=== PATIENT | male | born 1975 | race Caucasian/White ===

== ENCOUNTER 2020-08-02 16:14 | Observation (INO) | payer MEDICAID, SELFPAY ==
[2020-08-02 16:14] VITALS: BP 153/90; PULSE 87; RESP 18; TEMP 36.7; O2SAT 97; BMI 29.2
--- NOTE | 2020-08-02 16:30 | ED.VIS.GEN ---
History of Present Illness Chief Complaint: Substance Abuse Informant: Patient, Family Narrative: Patient is a 44-year-old male who presents to the emergency department to get help detoxing from fentanyl. He states that he has been using regularly over the past 2 years. He typically uses daily. He is up to half a gram a day now. Last time he used was 24 hours ago. States he snorts it. Denies any other current substance abuse. He did have a history of cocaine and meth use over a year ago. He denies any alcohol abuse. Does smoke cigarettes. He states this time he just feels like crap. He has had some chills. Denies any chest pain or shortness of breath. No abdominal pain but has not been hungry. Denies nausea or vomiting. No headache or vision changes. Past Medical History - Allergies and Home Meds Allergies/Adverse Reactions: Allergies No Known Allergies Allergy (Verified 08/02/20 16:16) Prior records reviewed: Yes Smoking Status: Current every day smoker Drugs: - - Fentanyl Review of Systems All systems negative except as indicated General: Reports: Chills. Denies: Fever Eyes: Denies: Visual changes - bilaterally, Diplopia ENT: Denies: Rhinorrhea, Sore throat Cardiovascular: Denies: Chest pain, Palpitations Respiratory: Denies: Dyspnea, Cough, Dyspnea on exertion Gastrointestinal: Denies: Abdominal pain, Nausea, Vomiting, Diarrhea Genitourinary: Denies: Dysuria, Hematuria, Frequency Musculoskeletal: Denies: Back pain, Extremity Pain Skin: Denies: Rash, Wounds Neurological: Denies: Headache, Weakness, Numbness Physical Exam Vital Signs/Narrative: Vital Signs Temp Pulse Resp BP Pulse Ox 08/02/20 16:14 98.0 F 87 18 153/90 H 97 Inital Vital Signs reviewed: Yes General: Well nourished, Well developed, No Acute Distress Head: Normocephalic, Atraumatic Eyes: Perrl, EOMI ENT: Moist mucous membranes, No rhinorrhea Neck: Supple, Nontender Cardiovascular: Regular rate, Regular rhythm, No murmurs Respiratory: No distress, CTA bilaterally, Chest nontender Abdomen: Soft, Nontender, Nondistended, Normal bowel sounds Back: Nontender, Normal Inspection Extremities: Nontender, No edema Skin: Normal color, No rash Neurological: Alert, Oriented x3, Cranial nerves II-XII grossly intact, Normal Strength, Normal Sensation Psychological: Normal affect, Normal Mood Diagnostic/Tx/Re-eval - Medical Decision Making Patient presents to the emergency department for requesting to detox from fentanyl use. Upon arrival to the ED vital signs within normal limits. He is in no acute distress. Will check basic lab work. Patient requesting something for his withdrawal symptoms. He has been having tremors of his lower extremities and does not feel well. He is given a single dose of 0.5 mg Ativan. The rest of his lab work did not reveal any significant acute abnormality. Will bring him into the hospital for further evaluation and management. He understands and is agreeable with this plan. ED Disposition - Plan for ED Patient: Disposition: Acute Care [facility] Diagnosis: Opioid abuse, Symptom of drug withdrawal
--- NOTE | 2020-08-02 17:00 | CM.ED ---
SOCIAL WORK Informant: Dr. Peters Reason for Consult: Substance Abuse Patient presents for medical withdrawal management from fentanyl. Met with patient and patient's significant other, Tamika in room. Introduced role and reason for referral. Patient gave permission for this worker to speak openly with significant other present. Patient reports last use of fentanyl was yesterday around 11a-12p. Patient with history of anxiety and depression and is treated with Paxil, Wellbutrin and Seroquel. Patient follows with [facility]. Significant other reports nursing has gone over [facility] agreement. Informed patient, this worker will update [facility] on admission and encyclopedia research worker will be in during admission to complete assessment. Patient verbalized understanding. Patient inquiring if medication can be given for restless legs. Dr. Peters updated. Plan: Admit to VIGNESH Baird, DIGITIZER OPERATOR, DRAPERY COUNSELOR
[2020-08-02 17:37] LABS: Absolute Neutrophil Count 6.7 X10^3/uL (2.0-7.7); Basophil# 0.04 X10^3/uL; Basophil% 0.4 % (0-1); Hematocrit 43.4 % (40-54); Hemoglobin 14.2 g/dL (13.0-16.5); Lymphocyte % 23.3 % (19-41); Mean Corp Hgb Conc 32.7 g/dL (32-36); Mean Corpuscular Hgb 28.6 pg (27.0-32.0); Mean Corpuscular Volume 87.3 fL (80-94); Mean Platelet Vol. 9.2 fl (6.2-12.0); Monocyte# 0.52 X10^3/uL; Monocyte% 5.3 % (0-10); NRBC Flagged by Analyzer 0 % (0-5); Neutrophil # 6.68 X10^3/uL (2.7-7.7); Neutrophil % 67.7 % (47-70); Platelet Count 350 K/mm3 (150-450); RBC Distribution Width CV 12.4 % (11.6-14.6); RBC Distribution Width SD 39.5 fl (35.1-43.9); Red Blood Count 4.97 M/mm3 (4.6-6.2); White Blood Count 9.9 K/mm3 (4.4-11.0)
[2020-08-02 17:50] LABS: ALB/GLOB Ratio 0.9 RATIO (0.9-2.4); AST(SGOT) 16 U/L (15-37); Alanine Aminotransfer ALT/SGPT 20 U/L (16-61); Albumin, Serum 3.3 g/dL (3.2-5.0); Alkaline Phosphatase 91 U/L (45-117); Anion Gap 6 (5-15); BUN 10 mg/dL (7-18); BUN/Creat Ratio 15.4 RATIO (10-20); Calcium,Total 8.8 mg/dL (8.5-10.1); Chloride 108 mmol/L (98-107); Creatinine, Serum 0.65 mg/dL (0.70-1.30); EST Glomerular Filtration Rate 143 mL/min (>60); Est Glom Filt Rate - Afr Amer 173 mL/min (>60); Estimated Creatinine Clearance 172.13 ml/min; Globulin 3.6 g/dL (2.2-4.2); Glucose 95 mg/dL (74-106); Potassium 3.7 mmol/L (3.5-5.1); Protein, Total 6.9 g/dL (6.4-8.2); Sodium Level 141 mmol/L (136-145)
[2020-08-02] MEDS: LORazepam 2 MG/ML Syringe 0.5 MG IV (18:03)
[2020-08-02 18:37] LABS: Alcohol, Blood (Medical)-Serum < 3.0 mg/dL
[2020-08-02 18:53] LABS: Amphetamine Urine VISTA NEGATIVE (<1000 ng/mL); Barbiturate Urine VISTA NEGATIVE (< 200 ng/mL); Benzodiazepine Urine VISTA NEGATIVE (< 200 ng/mL); Cocaine Urine VISTA NEGATIVE (< 300 ng/mL); Ecstacy Urine VISTA NEGATIVE (< 500 ng/mL); Methadone Urine VISTA NEGATIVE (< 300 ng/mL); PCP Urine VISTA NEGATIVE (< 25 ng/mL); THC Urine VISTA NEGATIVE (< 50 ng/mL); Vista UDS pH Range 6
--- NOTE | 2020-08-02 18:56 | CM.ED ---
SOCIAL WORK Call to [facility] Treatment Navigator, Kenroy to update on patient's admission to [facility]. Per Kenroy, die set up worker will be in tomorrow to complete assessment. Christopher Baird, GLOBAL IMPLEMENTATION MANAGER, RAILROAD CONSTRUCTION DIRECTOR
--- NOTE | 2020-08-02 19:00 | PCM.HP.STD ---
Problem List (1) Opiate withdrawal Status: Acute (2) Fentanyl dependence Status: Chronic (3) Polysubstance abuse Status: Chronic (4) Tobacco use Status: Chronic (5) Anxiety and depression Status: Chronic (6) GERD (gastroesophageal reflux disease) Status: Chronic Qualifiers: Esophagitis presence: esophagitis presence not specified Qualified Code(s): K21.9 - Gastro-esophageal reflux disease without esophagitis History of Present Illness Date of Admission: 08/02/20 Chief Complaint: Acute Opiate Withdrawal The patient is a 44 y/o M w/ PMHx: GERD, Anxiety and Depression, Tobacco use, Opiate abuse (Snorts Fentanyl, normally uses 1/2 gm daily, last usage 24 hours prior) who presents to the [facility] ED on 08/02/20 w/ noted opiate withdrawal onset starting this morning following last dose at ~ 11 am the day prior with abdominal pain/cramping, generalized body aches and pains, rhinorrhea, fatigue, restless leg, yawning. Patient interested in attaining clean status. He notes having a daughter and lives with his girlfriend who does not have any substance abuse history. 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 He notes he has never been in treatment prior and the longest he has been without opiates has been 3 days. He started snorting Fentanyl 2 years prior and also has history of percocet, dirty 30 and powder usage. He decided to come in specifically today secondary to symptoms and [being] tired of living like this. Work-up in the ED included T 98, heart 87, BP 153/90, respiratory rate 18, 97% on room air, unremarkable CBC, unremarkable CMP aside chloride 108, BUN/creatinine 10/0.65, unremarkable hepatic profile, negative urine drug screen, ethyl alcohol level less than 3. In the ED patient administered Ativan 0.5 mg IV x1. Past Medical History Past Medical History (Chronic Problems): Chronic Problems Fentanyl dependence (Chronic) Polysubstance abuse (Chronic) Tobacco use (Chronic) Anxiety and depression (Chronic) GERD (gastroesophageal reflux disease) (Chronic) Allergies No Known Allergies Allergy (Verified 08/02/20 16:16) Home Medications: Ambulatory Orders Medication Instructions Recorded Bupropion HCl [Bupropion Xl] 150 mg PO DAILY 08/02/20 Omeprazole 20 mg PO DAILY 08/02/20 Paroxetine [Paxil] 40 mg PO DAILY 08/02/20 Surgical History: no surgical history Psychiatric History: Anxiety, Depression Lives: Spouse/ Significant Other - Patient was with his significant, girlfriend who he denies as being a substance abuser. Smoking Status: Current every day smoker - Patient with ongoing cigarette tobacco usage of 1 pack/day for approximately 4 years now. Tobacco Use: Cigarettes Alcohol: None Drugs: - - Patient with ongoing current fentanyl usage of approximately 1/2 g/day snorted. Previous to this he was using Percocets, dirty 30 and powder. He denies any IV drug abuse history. - *Family History Maternal History Items: - - Patient notes paternal family history of cancer, unclear type but notes it was more rare. Paternal History Items: - - Patient states he does not know any of his paternal family history as he did not know his father. Review of Systems Constitutional: Reports: Anorexia, Chills, Malaise, Weakness, Fatigue. Denies: Fever, Weight Change HEENT: Reports: Nasal Congestion, Post Nasal Drip, Sinus Congestion. Denies: Head Aches, Sinus Drainage Cardiovascular: Denies: Chest Pain, Palpitations Respiratory: Denies: Cough, Shortness of breath at rest, Sputum production Gastrointestinal: Reports: Abdominal Pain, Nausea. Denies: Constipation, Diarrhea, Vomiting Genitourinary: Denies: Dysuria Musculoskeletal: Reports: Joint Pain, Muscle pain. Denies: Joint Tenderness Skin: Denies: Rash, Wounds Neurological: Denies: Numbness, Tingling, Focal weakness Psychiatric: Reports: Anxiety, Depression. Denies: Homicidal Ideations, Suicidal Ideations Hematologic/ Lymphatic: Denies: Easy Bruising, Easy Bleeding VTE Information - Inpt Only VTE Present on Admission: No VTE Mechan Device Prophylaxis: None VTE Pharm Prophylaxis ordered?: No Reason prophylaxis not ordered:: Treatment Not Indicated Patient Problems: Active and Suspected Problems Opioid abuse (Acute) Symptom of drug withdrawal (Acute) Opiate withdrawal (Acute) Subjective: Patient laying in the ED bed, fatigued appearance, yawning frequently, notes generalized discomfort. Objective: Physical Examination: General: awake, alert, oriented x 3 and cooperative, seated upright in the ED bed, fatigued appearance, yawning. Skin: normal color, turgor, no icterus, cyanosis. HEENT: AT/NC, EOMI, PERRLA, dry MM, yawning frequently, no carotid bruits or JVD noted. Lungs: CTA bilaterally, moderate effort, moderate decrease BL bases, no rales, ronchi or wheezing. Heart: Regular rate and rhythm; no gallop, rub audible. Abdomen: soft, overweight, generalized discomfort with palpation, nondistended, hyperactive bowel sounds, no obvious HSM. Extremities: no cyanosis, clubbing, or edema. Neurological: patient awake, alert, oriented x 3; cognitive function intact; pupils equally reactive to light and accomodation; cranial nerves II-XII grossly normal, moving all 4 extremities, no focal deficits, strength mildly to moderately globally decreased secondary to acute presentation. Psychiatric: affect appears fatigued, uncomfortable, no acute evidence of depressive or anxiety feelings. - Physical Exam Vitals/I&O's: Vital Signs Temp Pulse Resp BP Pulse Ox 98.0 F 87 18 153/90 H 97 08/02/20 16:14 08/02/20 16:14 08/02/20 16:14 08/02/20 16:14 08/02/20 16:14 Oxygen Delivery Method Room Air Weight: 227 lb 11.8 oz Body Mass Index (BMI) 29.2 Laboratory Results 08/02/20 16:55: WBC 9.9, RBC 4.97, Hgb 14.2, Hct 43.4, MCV 87.3, MCH 28.6, MCHC 32.7, RDW Std Deviation 39.5, RDW Coeff of Arelis 12.4, Plt Count 350, MPV 9.2, Immature Gran % (Auto) 0.300, Neut % (Auto) 67.7, Lymph % (Auto) 23.3, [place] % (Auto) 5.3, Eos % (Auto) 3.0, Baso % (Auto) 0.4, Absolute Neuts (auto) 6.7, Absolute Lymphs (auto) 2.30, Nucleated RBC % 0 08/02/20 16:55: Sodium 141, Potassium 3.7, Chloride 108 H, Carbon Dioxide 27.0, Anion Gap 6, BUN 10, Creatinine 0.65 L, Estim Creat Clear Calc 172.13, Est GFR (MDRD) Af Amer 173, Est GFR (MDRD) Non-Af 143, BUN/Creatinine Ratio 15.4, Glucose 95, Calcium 8.8, Total Bilirubin 0.30, AST 16, ALT 20, Alkaline Phosphatase 91, Total Protein 6.9, Albumin 3.3, Globulin 3.6, Albumin/Globulin Ratio 0.9 08/02/20 16:55: Ethyl Alcohol < 3.0 08/02/20 16:55: Urine Opiates Screen NEGATIVE, Urine Methadone Screen NEGATIVE, Ur Barbiturates Screen NEGATIVE, Ur Phencyclidine Scrn NEGATIVE, Ur Amphetamines Screen NEGATIVE, U Methamphetamin-MDMA NEGATIVE, U Benzodiazepines Scrn NEGATIVE, Urine Cocaine Screen NEGATIVE, U Cannabinoids Screen NEGATIVE, Ur Drug Screen Comment Assessment/Plan All Active Problems Opioid abuse (Acute) Symptom of drug withdrawal (Acute) Opiate withdrawal (Acute) The patient is a 44 y/o M w/ PMHx: GERD, Anxiety and Depression, Tobacco use, Opiate abuse (Snorts Fentanyl, normally uses 1/2 gm daily, last usage 24 hours prior) who presents to the [facility] ED on 08/02/20 w/ noted opiate withdrawal onset. 1. Acute Opiate Withdrawal: Will admit to [facility], routine labs including CBC, CMP, urine for drug screen obtained in the ED and not marked appearing, will initiate and continue on protocol with tapering course of Subutex, as needed Tylenol, ibuprofen, bowel regimen, gabapentin, Bentyl, Vistaril, methocarbamol, clonidine, PRN nightly trazodone for insomnia, IV fluids, IV antiemetics. Once patient clinically improved and completion of taper nearing will plan consultation with case management for transition to next level of rehabilitation care. 2. Polysubstance Abuse, denied any IV drug use history: Patient denies any IV drug abuse history but has longstanding abuse history and amenable to checking HIV and hepatitis panel. Discussed that if patient was positive for hepatitis C he would need to be clean and sober for approximately 6 months to be a candidate for treatment. Encouraged PCP establishment and follow-up. 3. Tobacco Abuse: Encouraged cessation, inpatient consultation per RT, NR if desired. 4. Elevated BP without hypertensive diagnosis: Initial BP upon presentation elevated above goal, continue to monitor, repeat appropriate, add regimen if necessary, PRN IV hydralazine. 5. GERD: We will maintain on famotidine. 6. Anxiety and depression: We will continue patient on bupropion and Paxil regimen. 7. DVT prophylaxis: Low risk, encourage ambulation. Inpatient E&M: 47320 Init Hosp L3
[2020-08-02 19:09] VITALS: BMI 29.2
[2020-08-02 19:23] VITALS: BP 121/74; PULSE 60; RESP 16; TEMP 37.3; O2SAT 97
[2020-08-02 19:32] VITALS: RESP 20; BMI 28.8
[2020-08-02 19:39] VITALS: BP 134/86; PULSE 72; RESP 16; TEMP 36.9; O2SAT 96
[2020-08-02 20:42] LABS: HIV - WCH Non-Reactive (Nonreactive)
[2020-08-02] MEDS: Lactated Ringers 1,000 ML 125 ML IV (21:00)
[2020-08-02] MEDS: Famotidine 20 MG Tablet PO (21:00)
[2020-08-02] MEDS: Buprenorphine HCl 2 MG TAB.SUBL SL (21:13)
[2020-08-02] MEDS: traZODone 100 MG Tablet PO (21:14)
[2020-08-02] MEDS: hydrOXYzine PAM 25 MG Capsule 50 MG PO (21:14)
[2020-08-02] MEDS: Ibuprofen 600 MG Tablet PO (21:14)
[2020-08-02] MEDS: Methocarbamol 750 MG Tablet 1500 MG PO (21:14)
[2020-08-02] MEDS: cloNIDine HCl 0.1 MG Tablet PO (21:15)
[2020-08-02] MEDS: 0.9% Saline Lock 10 ML Syringe IV (21:15)
[2020-08-03] VITALS (7 sets, daily range): BP systolic 129–149; BP diastolic 66–83; PULSE 68–78; RESP 16–18; TEMP 36.1–37.2; O2SAT 93–95; BMI 28.8
[2020-08-03 02:44] LABS: Hepatitis B Surface Antibody Non-Reactive; Hepatitis B Surface Antigen Non-Reactive (Nonreactive); Hepatitis C Antibody Non-Reactive (Nonreactive)
[2020-08-03] MEDS: Buprenorphine HCl 2 MG TAB.SUBL SL ×3 (05:09→21:30)
[2020-08-03] MEDS: hydrOXYzine PAM 25 MG Capsule 50 MG PO ×2 (05:09→18:09)
[2020-08-03] MEDS: Dicyclomine 10 MG Capsule 20 MG PO (05:10)
[2020-08-03] MEDS: Methocarbamol 750 MG Tablet 1500 MG PO ×2 (05:10→18:09)
[2020-08-03] MEDS: cloNIDine HCl 0.1 MG Tablet PO (05:11)
--- NOTE | 2020-08-03 07:11 | PCM.PN.HOSP ---
Patient Problems: Active and Suspected Problems Opioid abuse (Acute) Symptom of drug withdrawal (Acute) Opiate withdrawal (Acute) Reason for Visit: Acute opioid withdrawal Objective: Seen and examined. Patient having chills, shivering and anxiety. Feeling diaphoresis. Tremors but denies seizure or hallucination. Physical exam General: Mild lethargic, Oriented x3, Cooperative HEENT: Atraumatic, PERRLA, EOMI, Normocephalic Oral: No Gingival or Mucosal Lesions/ Ulcerations Neck: Supple, No JVD, Negative Carotid Bruits Lungs: Air entry diminished in bilateral lung bases. No crepitation/rhonchi Cardiovascular: Regular rate, Regular Rhythm, Normal S1, Normal S2, No murmurs Abdomen: Bowel Sounds Present, Soft, Non Tender, Non-Distended : No renal angle tenderness. No suprapubic tenderness. Extremities: No edema, Capillary Refill Less than 3 Seconds Skin: No rashes, No breakdown Musculoskeletal: No Tenderness to Palpation of Joints or Extremities Neurological: Cranial nerves II-XII grossly intact, Deep Tendon Reflexes 2+/4 and Symmetrical, Neuro grossly intact Psych/Mental Status: Normal Affect, Appropriate. Vitals/I&O's: Vital Signs Temp Pulse Resp BP Pulse Ox 98.2 F 76 18 149/83 H 93 08/03/20 05:18 08/03/20 05:18 08/03/20 05:18 08/03/20 05:18 08/03/20 05:18 Oxygen Delivery Method Room Air Weight: 224 lb Body Mass Index (BMI) 28.8 Intake and Output for Last 24 Hours 08/01/20 08/02/20 08/03/20 23:59 23:59 23:59 Intake Total 2400 / 2400 Balance 2400 / 2400 Laboratory Results 08/02/20 16:55: WBC 9.9, RBC 4.97, Hgb 14.2, Hct 43.4, MCV 87.3, MCH 28.6, MCHC 32.7, RDW Std Deviation 39.5, RDW Coeff of Arelis 12.4, Plt Count 350, MPV 9.2, Immature Gran % (Auto) 0.300, Neut % (Auto) 67.7, Lymph % (Auto) 23.3, [place] % (Auto) 5.3, Eos % (Auto) 3.0, Baso % (Auto) 0.4, Absolute Neuts (auto) 6.7, Absolute Lymphs (auto) 2.30, Nucleated RBC % 0 08/02/20 16:55: Sodium 141, Potassium 3.7, Chloride 108 H, Carbon Dioxide 27.0, Anion Gap 6, BUN 10, Creatinine 0.65 L, Estim Creat Clear Calc 172.13, Est GFR (MDRD) Af Amer 173, Est GFR (MDRD) Non-Af 143, BUN/Creatinine Ratio 15.4, Glucose 95, Calcium 8.8, Total Bilirubin 0.30, AST 16, ALT 20, Alkaline Phosphatase 91, Total Protein 6.9, Albumin 3.3, Globulin 3.6, Albumin/Globulin Ratio 0.9 08/02/20 16:55: Ethyl Alcohol < 3.0 08/02/20 16:55: Urine Opiates Screen NEGATIVE, Urine Methadone Screen NEGATIVE, Ur Barbiturates Screen NEGATIVE, Ur Phencyclidine Scrn NEGATIVE, Ur Amphetamines Screen NEGATIVE, U Methamphetamin-MDMA NEGATIVE, U Benzodiazepines Scrn NEGATIVE, Urine Cocaine Screen NEGATIVE, U Cannabinoids Screen NEGATIVE, Ur Drug Screen Comment 08/02/20 16:55: Hepatitis A IgM Ab Pending 08/02/20 16:55: Hep Bs Antigen Non-Reactive, Hep Bs Antibody Non-Reactive, Hepatitis C Antibody Non-Reactive, HIV 1&2 Antibody Non-Reactive Current Medications Acetaminophen (Tylenol) 500 mg PO Q4H PRN PRN PRN Reason: Temp > 100.4 F Al Hydroxide/Mg Hydroxide (Mylanta Ii) 30 ml PO Q6H PRN PRN PRN Reason: dyspesia Albuterol Sulfate (Ventolin Aerosols) 2.5 mg INHALATION Q2H PRN PRN PRN Reason: Dyspnea, wheezing Bisacodyl (Dulcolax) 10 mg RECTAL DAILY PRN PRN Reason: Constipation Buprenorphine HCl (Buprenorphine Hcl) 4 mg SL Q8H RAMÍREZ; Taper Stop: 08/05/20 21:14 Last Admin: 08/03/20 05:09 Dose: 4 mg Documented by: Bupropion HCl (Wellbutrin Xl) 150 mg PO DAILY RAMÍREZ Clonidine (Catapres) 0.1 mg PO Q8H PRN PRN PRN Reason: RESTLESSNESS Last Admin: 08/03/20 05:11 Dose: 0.1 mg Documented by: Dicyclomine HCl (Bentyl) 20 mg PO Q6H PRN PRN PRN Reason: Abdominal Discomfort Last Admin: 08/03/20 05:10 Dose: 20 mg Documented by: Famotidine (Pepcid) 20 mg PO BID [facility] Last Admin: 08/02/20 21:00 Dose: 20 mg Documented by: Gabapentin (Neurontin) 300 mg PO Q8H PRN PRN PRN Reason: moderate to severe anxiety Hydralazine HCl (Apresoline Iv) 10 mg IV Q4H PRN PRN PRN Reason: SBP > 160 Hydroxyzine Pamoate (Vistaril Pamoate Capsule) 50 mg PO Q6H PRN PRN PRN Reason: mild anxiety Last Admin: 08/03/20 05:09 Dose: 50 mg Documented by: Ibuprofen (Motrin) 600 mg PO Q8H PRN PRN PRN Reason: Pain Score 1-1010 Last Admin: 08/02/20 21:14 Dose: 600 mg Documented by: Loperamide HCl (Imodium) 2 mg PO Q4H PRN PRN PRN Reason: LOOSE STOOLS Methocarbamol (Methocarbamol) 1,500 mg PO Q6H PRN PRN PRN Reason: MUSCLE SPASM Last Admin: 08/03/20 05:10 Dose: 1,500 mg Documented by: Nicotine (Nicoderm Cq (Pbkc)) 21 mg TRANSDERM. DAILY [facility] Last Admin: 08/02/20 21:00 Dose: 21 mg Documented by: Nutritional Formula (Lactose Free) (Ensure Enlive) 120 ml PO 4X/DAY [facility] Last Admin: 08/02/20 21:00 Dose: 120 ml Documented by: Ondansetron HCl (Zofran Odt) 8 mg PO Q8H PRN PRN PRN Reason: NAUSEA Paroxetine HCl (Paxil) 40 mg PO DAILY [facility] Senna (Senokot) 2 tablet PO QHS PRN PRN Reason: Constipation Sodium Chloride () 10 - 40 ml IV UD PRN PRN Reason: SALINE FLUSH Last Admin: 08/02/20 21:15 Dose: 10 ml Documented by: Trazodone HCl (Desyrel) 100 mg PO QHS PRN PRN PRN Reason: INSOMNIA Last Admin: 08/02/20 21:14 Dose: 100 mg Documented by: STROKE Vital Signs/Narrative: Vital Signs Temp Pulse Resp BP Pulse Ox 08/03/20 05:18 98.2 F 76 18 149/83 H 93 Medical Necessity - Tobacco Use Smoking Status: Current every day smoker - Patient with ongoing cigarette tobacco usage of 1 pack/day for approximately 4 years now. Tobacco Use: Cigarettes Assessment/Plan All Active Problems Opioid abuse (Acute) Symptom of drug withdrawal (Acute) Opiate withdrawal (Acute) The patient is a 44 y/o gentleman with history of chronic opioid use mainly snorts half gram daily came to ED with opioid withdrawal syndrome 1. Acute Opiate Withdrawal: The patient is being admitted for acute opioid withdrawal syndrome medical stabilization. Patient is started on tapering course of buprenorphine along with other supportive medications ibuprofen, gabapentin, Bentyl, Vistaril, clonidine and methocarbamol. Patient also had IV fluid. 2. Polysubstance Abuse, with chronic opioid use and dependence: Patient denies IV needle use. Acute viral hepatitis is negative for hepatitis B and C but hepatitis A IgM pending. HIV 1 and 2 antibody nonreactive. 3. Tobacco Abuse: Encouraged cessation, on nicotine patch. 4. Elevated BP without hypertension diagnosis: Initial blood pressure was elevated but currently 127/90. Most probably elevated secondary to withdrawal syndrome. On clonidine. 5. GERD: on famotidine. 6. Anxiety and depression: on bupropion and Paxil regimen. 7. DVT prophylaxis: Low risk, encourage ambulation. Laboratory Results 08/02/20 16:55: WBC 9.9, RBC 4.97, Hgb 14.2, Hct 43.4, MCV 87.3, MCH 28.6, MCHC 32.7, RDW Std Deviation 39.5, RDW Coeff of Arelis 12.4, Plt Count 350, MPV 9.2, Immature Gran % (Auto) 0.300, Neut % (Auto) 67.7, Lymph % (Auto) 23.3, [place] % (Auto) 5.3, Eos % (Auto) 3.0, Baso % (Auto) 0.4, Absolute Neuts (auto) 6.7, Absolute Lymphs (auto) 2.30, Nucleated RBC % 0 08/02/20 16:55: Sodium 141, Potassium 3.7, Chloride 108 H, Carbon Dioxide 27.0, Anion Gap 6, BUN 10, Creatinine 0.65 L, Estim Creat Clear Calc 172.13, Est GFR (MDRD) Af Amer 173, Est GFR (MDRD) Non-Af 143, BUN/Creatinine Ratio 15.4, Glucose 95, Calcium 8.8, Total Bilirubin 0.30, AST 16, ALT 20, Alkaline Phosphatase 91, Total Protein 6.9, Albumin 3.3, Globulin 3.6, Albumin/Globulin Ratio 0.9 08/02/20 16:55: Ethyl Alcohol < 3.0 08/02/20 16:55: Urine Opiates Screen NEGATIVE, Urine Methadone Screen NEGATIVE, Ur Barbiturates Screen NEGATIVE, Ur Phencyclidine Scrn NEGATIVE, Ur Amphetamines Screen NEGATIVE, U Methamphetamin-MDMA NEGATIVE, U Benzodiazepines Scrn NEGATIVE, Urine Cocaine Screen NEGATIVE, U Cannabinoids Screen NEGATIVE, Ur Drug Screen Comment 08/02/20 16:55: Hepatitis A IgM Ab Pending 08/02/20 16:55: Hep Bs Antigen Non-Reactive, Hep Bs Antibody Non-Reactive, Hepatitis C Antibody Non-Reactive, HIV 1&2 Antibody Non-Reactive Inpatient E&M: 19012 Subs Hosp L2
--- NOTE | 2020-08-03 09:32 | PCM.NTREPORT ---
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 UBW: 131.542 kg- wt loss 22.8% wt loss x 1 yr (significant)- feels wt loss d/t his drug use. Agreeable to ONS medpass for increased nutrition if consumed. [ End ] - Nutrition Diagnosis Problem / Etiology / Signs & Symptoms (PES):: Pt with suboptimal oral po intake r/t drug abuse AEB >20% wt loss x 1 yr and poor po intake. [ End ] Evidence of Malnutrition Exists:: Yes Severe PCM:: Social & Environmental circumstances - Nutrition Intervention Nutrition Prescription:: [id number] shanika / 80-90 gm pro / day - Food / Nutrient Delivery Interventions Summary of nutrition intervention:: Will provide star pudding w/ lunch and dinner for increased nutrition if consumed. Rec continue regular diet. [ End ] Nutrition education provided?: No - MNT Monitoring Further MNT monitoring and evaluation required?: Yes MNT Follow-up in:: 3-5 days - if questions, please call RD/LD [phone]
--- NOTE | 2020-08-03 10:06 | ADDICTION ---
This typewriter tester met with patient in his room to complete ASAM, MSE and DUDIT assessments and to discuss discharge planning. Patient was asleep upon this typewriter tester's arrival but woke with verbal rousing. He presented with depressed mood and congruent affect. He refused all discharge planning stating that I've got some things I need to handle. He appears approrpate for the 4.0 LOC aeb his report of recent use amount and frequency. ASAM: 1: Moderate 2: None 3: Moderate 4: Severe 5: Severe 6: Severe
[2020-08-03] MEDS: Ibuprofen 600 MG Tablet PO (10:23)
[2020-08-03] MEDS: Gabapentin 300 MG Capsule PO (10:23)
[2020-08-03] MEDS: Famotidine 20 MG Tablet PO ×2 (10:24→21:30)
[2020-08-03] MEDS: buPROPion (XL) 150 MG TABLET.XL PO (10:25)
[2020-08-03] MEDS: Paroxetine 20 MG Tablet 40 MG PO (10:25)
[2020-08-03] MEDS: traZODone 100 MG Tablet PO (21:30)
[2020-08-04 02:57] VITALS: BP 141/87; PULSE 65; RESP 18; TEMP 36.8; O2SAT 95
[2020-08-04] MEDS: hydrOXYzine PAM 25 MG Capsule 50 MG PO ×2 (03:06→15:19)
[2020-08-04] MEDS: cloNIDine HCl 0.1 MG Tablet PO ×2 (03:06→15:19)
[2020-08-04] MEDS: Buprenorphine HCl 2 MG TAB.SUBL SL ×3 (05:20→20:32)
[2020-08-04 08:41] LABS: Hepatitis A IgM Antibody Negative (Negative)
[2020-08-04 09:22] VITALS: BP 137/81; PULSE 80; RESP 16; TEMP 37.1; O2SAT 95
[2020-08-04] MEDS: Paroxetine 20 MG Tablet 40 MG PO (09:30)
[2020-08-04] MEDS: Famotidine 20 MG Tablet PO ×2 (09:30)
[2020-08-04] MEDS: buPROPion (XL) 150 MG TABLET.XL PO (09:30)
[2020-08-04] MEDS: Gabapentin 300 MG Capsule PO (09:35)
--- NOTE | 2020-08-04 12:19 | PN_ITS ---
Patient Problems: Active and Suspected Problems Opioid abuse (Acute) Symptom of drug withdrawal (Acute) Opiate withdrawal (Acute) Reason for Visit: Follow-up for acute opioid withdrawal. Objective: Seen and examined. Patient is awake, alert and oriented x3. Patient is talking coherent. Denies hallucination, seizure. Physical exam: General: Alert, Oriented x3, Cooperative HEENT: Atraumatic, PERRLA, EOMI, Normocephalic Oral: No Gingival or Mucosal Lesions/ Ulcerations Neck: Supple, No JVD, Negative Carotid Bruits Lungs: Air entry diminished in bilateral lung bases. No crepitation/rhonchi Cardiovascular: Regular rate, Regular Rhythm, Normal S1, Normal S2, No murmurs Abdomen: Bowel Sounds Present, Soft, Non Tender, Non-Distended : No renal angle tenderness. No suprapubic tenderness. Extremities: No edema, Capillary Refill Less than 3 Seconds Skin: No rashes, No breakdown Musculoskeletal: No Tenderness to Palpation of Joints or Extremities Neurological: Cranial nerves II-XII grossly intact, Deep Tendon Reflexes 2+/4 and Symmetrical, Neuro grossly intact Psych/Mental Status: Normal Affect, Appropriate. Vitals/I&O's: Vital Signs Temp Pulse Resp BP Pulse Ox 98.7 F 80 16 137/81 H 95 08/04/20 09:22 08/04/20 09:22 08/04/20 09:22 08/04/20 09:22 08/04/20 09:22 Oxygen Delivery Method Room Air Weight: 224 lb 0.011 oz Body Mass Index (BMI) 28.8 Intake and Output for Last 24 Hours 08/02/20 08/03/20 08/04/20 23:59 23:59 23:59 Intake Total 3300 / 3300 1680 / 1680 Balance 3300 / 3300 1680 / 1680 Laboratory Results 08/02/20 16:55: Hepatitis A IgM Ab Negative, Hepatitis A Ab Total Cancelled, Hepatitis A Interp Cancelled, Hep Bs Antigen Cancelled, Hep Bs Ag Confirmation Cancelled, Hep B Surface Ag Comm Cancelled, Hep Bs Antibody Interp Cancelled, Hep B Core Total Ab Cancelled, Hep B Core IgM Ab Cancelled, Hepatitis C Ab Confirm Cancelled, Hep C Confirm Com 1 Cancelled Current Medications Acetaminophen (Tylenol) 500 mg PO Q4H PRN PRN PRN Reason: Temp > 100.4 F Al Hydroxide/Mg Hydroxide (Mylanta Ii) 30 ml PO Q6H PRN PRN PRN Reason: dyspesia Albuterol Sulfate (Ventolin Aerosols) 2.5 mg INHALATION Q2H PRN PRN PRN Reason: Dyspnea, wheezing Bisacodyl (Dulcolax) 10 mg RECTAL DAILY PRN PRN Reason: Constipation Buprenorphine HCl (Buprenorphine Hcl) 2 mg SL Q8H RAMÍREZ; Taper Stop: 08/05/20 21:14 Last Admin: 08/04/20 05:20 Dose: 2 mg Documented by: Bupropion HCl (Wellbutrin Xl) 150 mg PO DAILY RAMÍREZ Last Admin: 08/04/20 09:30 Dose: 150 mg Documented by: Clonidine (Catapres) 0.1 mg PO Q8H PRN PRN PRN Reason: RESTLESSNESS Last Admin: 08/04/20 03:06 Dose: 0.1 mg Documented by: Dicyclomine HCl (Bentyl) 20 mg PO Q6H PRN PRN PRN Reason: Abdominal Discomfort Last Admin: 08/03/20 05:10 Dose: 20 mg Documented by: Famotidine (Pepcid) 20 mg PO BID RAMÍREZ Last Admin: 08/04/20 09:30 Dose: 20 mg Documented by: Gabapentin (Neurontin) 300 mg PO Q8H PRN PRN PRN Reason: moderate to severe anxiety Last Admin: 08/04/20 09:35 Dose: 300 mg Documented by: Hydralazine HCl (Apresoline Iv) 10 mg IV Q4H PRN PRN PRN Reason: SBP > 160 Hydroxyzine Pamoate (Vistaril Pamoate Capsule) 50 mg PO Q6H PRN PRN PRN Reason: mild anxiety Last Admin: 08/04/20 03:06 Dose: 50 mg Documented by: Ibuprofen (Motrin) 600 mg PO Q8H PRN PRN PRN Reason: Pain Score 1-10/10 Last Admin: 08/03/20 10:23 Dose: 600 mg Documented by: Loperamide HCl (Imodium) 2 mg PO Q4H PRN PRN PRN Reason: LOOSE STOOLS Methocarbamol (Methocarbamol) 1,500 mg PO Q6H PRN PRN PRN Reason: MUSCLE SPASM Last Admin: 08/03/20 18:09 Dose: 1,500 mg Documented by: Nicotine (Nicoderm Cq (Pbkc)) 21 mg TRANSDERM. DAILY [facility] Last Admin: 08/04/20 09:28 Dose: Not Given Documented by: Nutritional Formula (Lactose Free) (Ensure Enlive) 120 ml PO 4X/DAY [facility] Last Admin: 08/04/20 09:28 Dose: 120 ml Documented by: Ondansetron HCl (Zofran Odt) 8 mg PO Q8H PRN PRN PRN Reason: NAUSEA Paroxetine HCl (Paxil) 40 mg PO DAILY [facility] Last Admin: 08/04/20 09:30 Dose: 40 mg Documented by: Senna (Senokot) 2 tablet PO QHS PRN PRN Reason: Constipation Sodium Chloride () 10 - 40 ml IV UD PRN PRN Reason: SALINE FLUSH Last Admin: 08/02/20 21:15 Dose: 10 ml Documented by: Trazodone HCl (Desyrel) 100 mg PO QHS PRN PRN PRN Reason: INSOMNIA Last Admin: 08/03/20 21:30 Dose: 100 mg Documented by: STROKE Vital Signs/Narrative: Vital Signs Temp Pulse Resp BP Pulse Ox 08/04/20 09:22 98.7 F 80 16 137/81 H 95 Medical Necessity - Tobacco Use Smoking Status: Current every day smoker Tobacco Use: Cigarettes Assessment/Plan All Active Problems Opioid abuse (Acute) Symptom of drug withdrawal (Acute) Opiate withdrawal (Acute) The patient is a 44 y/o gentleman with history of chronic opioid use mainly snorts half gram daily came to ED with opioid withdrawal syndrome 1. Acute Opiate Withdrawal: The patient is being admitted for acute opioid withdrawal syndrome medical stabilization. Patient is started on tapering course of buprenorphine along with other supportive medications ibuprofen, gabapentin, Bentyl, Vistaril, clonidine and methocarbamol. Patient also had IV fluid. 08/04: Symptoms are well controlled. Continue buprenorphine as per taper. 2. Polysubstance Abuse, with chronic opioid use and dependence: Patient denies IV needle use. Acute viral hepatitis is negative for hepatitis B and C but hepatitis A IgM pending. HIV 1 and 2 antibody nonreactive. Advised to quit substance use. 3. Tobacco Abuse: Encouraged cessation, on nicotine patch. 4. Elevated BP without hypertension diagnosis: Initial blood pressure was elevated but currently 127/90. Most probably elevated secondary to withdrawal syndrome. On clonidine. Blood pressure is controlled. 5. GERD: on famotidine. 6. Anxiety and depression: on bupropion and Paxil regimen. 7. DVT prophylaxis: Low risk, encourage ambulation. Laboratory Results 08/02/20 16:55: WBC 9.9, RBC 4.97, Hgb 14.2, Hct 43.4, MCV 87.3, MCH 28.6, MCHC 32.7, RDW Std Deviation 39.5, RDW Coeff of Arelis 12.4, Plt Count 350, MPV 9.2, Immature Gran % (Auto) 0.300, Neut % (Auto) 67.7, Lymph % (Auto) 23.3, [place] % (Auto) 5.3, Eos % (Auto) 3.0, Baso % (Auto) 0.4, Absolute Neuts (auto) 6.7, Absolute Lymphs (auto) 2.30, Nucleated RBC % 0 08/02/20 16:55: Sodium 141, Potassium 3.7, Chloride 108 H, Carbon Dioxide 27.0, Anion Gap 6, BUN 10, Creatinine 0.65 L, Estim Creat Clear Calc 172.13, Est GFR (MDRD) Af Amer 173, Est GFR (MDRD) Non-Af 143, BUN/Creatinine Ratio 15.4, Glucose 95, Calcium 8.8, Total Bilirubin 0.30, AST 16, ALT 20, Alkaline Phosphatase 91, Total Protein 6.9, Albumin 3.3, Globulin 3.6, Albumin/Globulin Ratio 0.9 08/02/20 16:55: Ethyl Alcohol < 3.0 08/02/20 16:55: Urine Opiates Screen NEGATIVE, Urine Methadone Screen NEGATIVE, Ur Barbiturates Screen NEGATIVE, Ur Phencyclidine Scrn NEGATIVE, Ur Amphetamines Screen NEGATIVE, U Methamphetamin-MDMA NEGATIVE, U Benzodiazepines Scrn NEGATIVE, Urine Cocaine Screen NEGATIVE, U Cannabinoids Screen NEGATIVE, Ur Drug Screen Comment 08/02/20 16:55: Hepatitis A IgM Ab Pending 08/02/20 16:55: Hep Bs Antigen Non-Reactive, Hep Bs Antibody Non-Reactive, Hepatitis C Antibody Non-Reactive, HIV 1&2 Antibody Non-Reactive Inpatient E&M: 24084 Subs Hosp L2
[2020-08-04 15:29] VITALS: BP 160/89; PULSE 89; RESP 16; TEMP 36.9; O2SAT 98
[2020-08-04 20:27] VITALS: BP 136/80; PULSE 69; RESP 18; TEMP 36.9; O2SAT 94
[2020-08-04] MEDS: traZODone 100 MG Tablet PO (20:38)
[2020-08-05 02:48] VITALS: BP 124/76; PULSE 65; RESP 16; TEMP 36.4; O2SAT 96
[2020-08-05 07:06] VITALS: O2SAT 96
--- NOTE | 2020-08-05 09:13 | DCINST_ITS ---
- Discharge Diagnoses Current Active Problems: Current Active and Chronic Problems Opioid abuse (Acute) Symptom of drug withdrawal (Acute) Opiate withdrawal (Acute) Fentanyl dependence (Chronic) Polysubstance abuse (Chronic) Tobacco use (Chronic) Anxiety and depression (Chronic) GERD (gastroesophageal reflux disease) (Chronic) You will use the following diet at home:: Regular Your food should be the consistency of: Regular Discharge Activity: May Not Drive Call your doctor if you observe: Fever of 101 or Higher, Coldness, Increased Pain, Numbness or Tingling, Change in Color, Inability to urinate, Shortness of breath, Dizziness, Fainting spells, Swelling in the ankles, Chest pain, Prolonged hiccoughing, Increased palpitations (irregular heartbeat), Calf discomfort, Uncontrolled pain Allergies/Adverse Reactions: Allergies No Known Allergies Allergy (Verified 08/02/20 16:16) Medications to take at Discharge Bupropion HCl [Bupropion Xl] 150 mg PO DAILY 08/02/20 Omeprazole 20 mg PO DAILY 08/02/20 Paroxetine [Paxil] 40 mg PO DAILY 08/02/20 Primary Care Physician: Care Physician,No Primary [Primary Care Provider] - Please follow up with your Primary Care Physician in: in 2 weeks Test Results: Test results from this visit will be discussed in further detail at your follow- up appointment, if applicable.
--- NOTE | 2020-08-05 09:14 | PCM.DC.SUM ---
Discharge Date and Diagnosis - Problem List Patient Problems: Active and Suspected Problems Opioid abuse (Acute) Symptom of drug withdrawal (Acute) Opiate withdrawal (Acute) Date of Admission: 08/02/20 Date of Discharge: 08/05/20 - Primary Discharge Diagnosis Acute Problems: Active Problems Opioid abuse (Acute) Symptom of drug withdrawal (Acute) Opiate withdrawal (Acute) - Secondary Discharge Diagnosis Chronic Problems: Chronic Problems Fentanyl dependence (Chronic) Polysubstance abuse (Chronic) Tobacco use (Chronic) Anxiety and depression (Chronic) GERD (gastroesophageal reflux disease) (Chronic) Hospital Course and Treatment Summary of Care Provided: The patient is a 44 y/o gentleman with history of chronic opioid use mainly snorts half gram daily came to ED with opioid withdrawal syndrome. 1. Acute Opiate Withdrawal: The patient was admitted for acute opioid withdrawal syndrome medical stabilization. Patient was started on tapering course of buprenorphine along with other supportive medications ibuprofen, gabapentin, Bentyl, Vistaril, clonidine and methocarbamol. Patient also had IV fluid. Patient symptoms are controlled. Patient asked for Vistaril for his anxiety symptoms. He was advised to take only at night as there is potential for sedation. No driving. Follow-up [address] Betts and Johan hwang to maintain sobriety. 2. Polysubstance Abuse, with chronic opioid use and dependence: Patient denies IV needle use. Acute viral hepatitis is negative for hepatitis B and C but hepatitis A IgM pending. HIV 1 and 2 antibody nonreactive. Advised to quit substance use. 3. Tobacco Abuse: Encouraged cessation, on nicotine patch. 4. Elevated BP without hypertension diagnosis: Initial blood pressure was elevated but currently 127/90. Most probably elevated secondary to withdrawal syndrome. On clonidine. Blood pressure is controlled. 5. GERD: on famotidine. 6. Anxiety and depression: on bupropion and Paxil regimen. 7. DVT prophylaxis: Low risk, encourage ambulation. [] Discharge medication reconciliation done. Discharge follow-up instructions completed. Discharge process discussed with the patient and all questions were answered to patient's satisfaction. Total time spent, exact 35 minutes on discharge meds reconciliation, examination, coordination of care with nurses and ancillary staff, review of imaging and blood test and discussion with the patient on follow-up instructions Patient Problems: Active and Suspected Problems Opioid abuse (Acute) Symptom of drug withdrawal (Acute) Opiate withdrawal (Acute) - Physical Exam Vitals/I&O's: Vital Signs Temp Pulse Resp BP Pulse Ox 97.5 F L 65 16 124/76 H 96 08/05/20 02:48 08/05/20 02:48 08/05/20 02:48 08/05/20 02:48 08/05/20 07:06 Oxygen Delivery Method Room Air Weight: 224 lb 0.011 oz Body Mass Index (BMI) 28.8 Intake and Output for Last 24 Hours 08/03/20 08/04/20 08/05/20 23:59 23:59 23:59 Intake Total 3300 / 3300 2680 / 2680 Balance 3300 / 3300 2680 / 2680 General: Alert, Oriented x3, Cooperative HEENT: Atraumatic, PERRLA, EOMI, Normocephalic Neck: Supple, No JVD, Negative Carotid Bruits Lungs: Clear to auscultation, Normal air movement, No rhonchi, No wheeze, No rales Cardiovascular: Regular rate, Regular Rhythm, Normal S1, Normal S2, No murmurs Abdomen: Bowel Sounds Present, Soft, Non Tender, Non-Distended, - - : No renal angle tenderness. No suprapubic tenderness. Urine output is good. Extremities: No edema, Capillary Refill Less than 3 Seconds Skin: No rashes, No breakdown Musculoskeletal: No Tenderness to Palpation of Joints or Extremities, - - No tenderness in biceps or triceps but he complained that he feels pain on the stretching his arm especially on supination and flexing forearm. Neurological: Cranial nerves II-XII grossly intact, Deep Tendon Reflexes 2+/4 and Symmetrical, Neuro grossly intact, Motor Exam 5/5 strength throughout Psych/Mental Status: Normal Affect, Appropriate Current Medications Acetaminophen (Tylenol) 500 mg PO Q4H PRN PRN PRN Reason: Temp > 100.4 F Al Hydroxide/Mg Hydroxide (Mylanta Ii) 30 ml PO Q6H PRN PRN PRN Reason: dyspesia Albuterol Sulfate (Ventolin Aerosols) 2.5 mg INHALATION Q2H PRN PRN PRN Reason: Dyspnea, wheezing Bisacodyl (Dulcolax) 10 mg RECTAL DAILY PRN PRN Reason: Constipation Buprenorphine HCl (Buprenorphine Hcl) 2 mg SL Q12H RAMÍREZ; Taper Stop: 08/05/20 21:14 Last Admin: 08/04/20 20:32 Dose: 2 mg Documented by: Bupropion HCl (Wellbutrin Xl) 150 mg PO DAILY [facility] Last Admin: 08/04/20 09:30 Dose: 150 mg Documented by: Clonidine (Catapres) 0.1 mg PO Q8H PRN PRN PRN Reason: RESTLESSNESS Last Admin: 08/04/20 15:19 Dose: 0.1 mg Documented by: Dicyclomine HCl (Bentyl) 20 mg PO Q6H PRN PRN PRN Reason: Abdominal Discomfort Last Admin: 08/03/20 05:10 Dose: 20 mg Documented by: Famotidine (Pepcid) 20 mg PO BID [facility] Last Admin: 08/04/20 09:30 Dose: 20 mg Documented by: Gabapentin (Neurontin) 300 mg PO Q8H PRN PRN PRN Reason: moderate to severe anxiety Last Admin: 08/04/20 09:35 Dose: 300 mg Documented by: Hydralazine HCl (Apresoline Iv) 10 mg IV Q4H PRN PRN PRN Reason: SBP > 160 Hydroxyzine Pamoate (Vistaril Pamoate Capsule) 50 mg PO Q6H PRN PRN PRN Reason: mild anxiety Last Admin: 08/04/20 15:19 Dose: 50 mg Documented by: Ibuprofen (Motrin) 600 mg PO Q8H PRN PRN PRN Reason: Pain Score 1-10/10 Last Admin: 08/03/20 10:23 Dose: 600 mg Documented by: Loperamide HCl (Imodium) 2 mg PO Q4H PRN PRN PRN Reason: LOOSE STOOLS Methocarbamol (Methocarbamol) 1,500 mg PO Q6H PRN PRN PRN Reason: MUSCLE SPASM Last Admin: 08/03/20 18:09 Dose: 1,500 mg Documented by: Nicotine (Nicoderm Cq (Pbkc)) 21 mg TRANSDERM. DAILY [facility] Last Admin: 08/04/20 09:28 Dose: Not Given Documented by: Nutritional Formula (Lactose Free) (Ensure Enlive) 120 ml PO 4X/DAY [facility] Last Admin: 08/04/20 20:32 Dose: 120 ml Documented by: Ondansetron HCl (Zofran Odt) 8 mg PO Q8H PRN PRN PRN Reason: NAUSEA Paroxetine HCl (Paxil) 40 mg PO DAILY [facility]REZ Last Admin: 08/04/20 09:30 Dose: 40 mg Documented by: Senna (Senokot) 2 tablet PO QHS PRN PRN Reason: Constipation Sodium Chloride () 10 - 40 ml IV UD PRN PRN Reason: SALINE FLUSH Last Admin: 08/02/20 21:15 Dose: 10 ml Documented by: Trazodone HCl (Desyrel) 100 mg PO QHS PRN PRN PRN Reason: INSOMNIA Last Admin: 08/04/20 20:38 Dose: 100 mg Documented by: Discharge Activity: May Not Drive Call your doctor if you observe: Fever of 101 or Higher, Coldness, Increased Pain, Numbness or Tingling, Change in Color, Inability to urinate, Shortness of breath, Dizziness, Fainting spells, Swelling in the ankles, Chest pain, Prolonged hiccoughing, Increased palpitations (irregular heartbeat), Calf discomfort, Uncontrolled pain Home Medications: Medications to take at Discharge Bupropion HCl [Bupropion Xl] 150 mg PO DAILY 08/02/20 Omeprazole 20 mg PO DAILY 08/02/20 Paroxetine [Paxil] 40 mg PO DAILY 08/02/20 Hydroxyzine HCl 25 mg PO QHS PRN PRN #20 tab 08/05/20 Nicotine [Nicoderm Cq] 21 mg TRANSDERM. DAILY #30 patch 08/05/20 Following Prescriptions Were Given to Patient: Hydroxyzine HCl 25 mg PO QHS PRN PRN #20 tab PRN Reason: ANXIETY Transmission Status: Pending to [id number] Nicotine [Nicoderm Cq] 21 mg TRANSDERM. DAILY #30 patch Transmission Status: Pending to [id number] Primary Care Physician: Care Physician,No Primary [Primary Care Provider] - Please follow up with your Primary Care Physician in: in 2 weeks Medical Necessity - Tobacco Use Smoking Status: Current every day smoker Tobacco Use: Cigarettes Meaningful Use Info Meaningful Use Diagnoses (Choose all that apply): None applicable Inpatient E&M: 04430 [facility] L3
[2020-08-05] MEDS: buPROPion (XL) 150 MG TABLET.XL PO (09:56)
[2020-08-05] MEDS: Famotidine 20 MG Tablet PO (09:56)
[2020-08-05] MEDS: Paroxetine 20 MG Tablet 40 MG PO (09:56)
[2020-08-05] MEDS: Buprenorphine HCl 2 MG TAB.SUBL SL (09:56)
[2020-08-05 10:16] VITALS: BP 132/73; PULSE 62; RESP 18; TEMP 36.7; O2SAT 98
== END 2020-08-05 10:49 | disposition home or self-care (01) | DRG 773 ==
LOC: ED 17:11 → MS3 19:23
PROVIDERS: Admitting Provider Family Medicine; Emergency Provider Emergency Medicine; Visit Provider Internal Medicine
DX: F11.23 Opioid dependence with withdrawal (principal); F17.210 Nicotine dependence, cigarettes, uncomplicated; F32.9 Major depressive disorder, single episode, unspecified; R03.0 Elevated blood-pressure reading, without diagnosis of hypertension; F41.9 Anxiety disorder, unspecified; G25.81 Restless legs syndrome; K21.9 Gastro-esophageal reflux disease without esophagitis; F19.10 Other psychoactive substance abuse, uncomplicated; Z79.899 Other long term (current) drug therapy; Z80.9 Family history of malignant neoplasm, unspecified
CPT/HCPCS: 80053; 80307; 80320; 85025; 86703; 86706; 86709; 86803; 87340; 96361; 96374; 97802; 99218; 99285; 99406; J7120; A4216; G0378; G0480